=== PATIENT | female | born 1995 | race Caucasian/White ===

== ENCOUNTER 2022-05-12 21:14 | Emergency (ER) | payer SELFPAY ==
[~2022-05-12] VITALS: Ht 162.6 cm; Wt 68.0 kg
[2022-05-12 21:19] VITALS: BP 123/86
--- NOTE | 2022-05-12 21:19 | NUR ---
BIBA TO BED #12
--- NOTE | 2022-05-12 21:20 | NUR ---
PARESH FROM HOME WITH C/O RT FLANK PAIN, N/V , ZOFRAN 8 MG ODT WAS GIVEN ENROUTE, SHE TOOK PERCOCET AN HOUR AGO
[2022-05-12] MEDS ORDERED: NACL 0.9% 1,000 ML IV SCH (22:15)
[2022-05-12] MEDS ORDERED: KETOROLAC 30 MG/ML VIAL IVP ONE (22:15)
[2022-05-12] MEDS ORDERED: MORPHINE SULFATE 4 MG/ML SYR IVP ONE (22:15)
--- NOTE | 2022-05-12 22:23 | NUR ---
PT TAKEN TO CT
[2022-05-12 23:10] LABS: BASOPHILS % (AUTO) 0.2 % (0.0-2.0); HEMATOCRIT 38.5 % (36-48); LYMPHOCYTES # (AUTO) 0.7 K/uL (2.5-16.5); LYMPHOCYTES % (AUTO) 6.7 % (20.5-51.1); MEAN CORPUSCULAR HEMOGLOBIN 29 pg (27-31); MEAN CORPUSCULAR HGB CONC 34 g/dL (33-37); MEAN CORPUSCULAR VOLUME 86.9 fL (80-94); MONOCYTES # (AUTO) 0.3 K/uL (0.8-1.0); MONOCYTES % (AUTO) 2.4 % (1.7-9.3); NEUTROPHILS % (AUTO) 90.7 % (42.2-75.2); PLATELET COUNT (AUTO) 280 K/uL (140-450); RED BLOOD CELL COUNT(AUTO) 4.43 MIL/uL (4.20-5.40); RED CELL DISTRIBUTION WIDTH 12.5 % (11.6-13.7)
[2022-05-12 23:42] LABS: APPEARANCE,URINE SL CLOUDY (CLEAR); BILIRUBIN,URINE 2+ (NEGATIVE); BLOOD, URINE 2+ (NEGATIVE); COLOR,URINE YELLOW (YELLOW); LEUKOCYTE ESTERASE ,URINE NEGATIVE (NEGATIVE); NITRITE, URINE NEGATIVE (NEGATIVE); UGLUCOSE NEGATIVE (NEGATIVE)
[2022-05-12 23:46] LABS: RBC,URINE 0-5 /HPF (0-5); WBC,URINE 0-5 /HPF (0-5)
[2022-05-12 23:47] LABS: URINE AMORPHOUS URATE 3+ /HPF (None Seen)
[2022-05-12 23:48] LABS: ALBUMIN 3.6 g/dL (3.4-5.0); ANION GAP 13.4 (8-16); CARBON DIOXIDE 27.7 mmol/L (21-32); CREATININE 0.9 mg/dL (0.6-1.3); POTASSIUM 4.1 mmol/L (3.5-5.1); TOTAL BILIRUBIN 0.5 mg/dL (0.0-1.0)
[2022-05-13] MEDS ORDERED: NAPR-54 PO ×2 (00:50→00:57)
[2022-05-13 01:05] VITALS: BP 123/86
== END 2022-05-13 01:05 | disposition home or self-care (01) ==
LOC: MED 21:14
DX: N20.0 Calculus of kidney (principal)
CPT/HCPCS: 36415; 74176; 80053; 81001; 81025; 85025; 96361; 96374; 96375; 99284; J1885; J2270